=== PATIENT | male | born 1955 | race African-American/Black ===

== ENCOUNTER 2021-11-14 14:51 | Emergency (ER) | payer BC, MEDICAID ==
[~2021-11-14] VITALS: Ht 180.3 cm; Wt 80.0 kg
[2021-11-14 15:06] VITALS: BP 112/70
[2021-11-14] MEDS ORDERED: BENZ-16 MT (17:33)
== END 2021-11-14 17:52 | disposition home or self-care (01) ==
LOC: ER 14:51
DX: R05.9 Cough, unspecified (principal); B34.9 Viral infection, unspecified; M19.90 Unspecified osteoarthritis, unspecified site; Z20.822 Contact with and (suspected) exposure to COVID-19; Z96.643 Presence of artificial hip joint, bilateral
CPT/HCPCS: 87426; 99283

== ENCOUNTER 2024-10-20 09:46 | Emergency (ER) | payer MEDICAID, MEDICARE ==
[~2024-10-20] VITALS: Ht 172.7 cm; Wt 77.7 kg
[~2024-10-20 09:46] MED LIST: BENZ-16 MT
[2024-10-20 09:48] VITALS: O2SAT 98
[2024-10-20 12:05] VITALS: BP 144/87; PULSE 81; RESP 18; TEMP 36.72516; O2SAT 98
== END 2024-10-20 12:45 | disposition home or self-care (01) ==
LOC: ER 09:46
DX: B34.9 Viral infection, unspecified (principal); Z20.822 Contact with and (suspected) exposure to COVID-19
CPT/HCPCS: 71045; 87426; 87804; 99283